=== PATIENT | male | born 2000 | race Caucasian/White ===

== ENCOUNTER 2024-06-20 13:47 | Outpatient (REF) | payer OTHER, SELFPAY ==
[2024-06-20 14:28] LABS: Internal Control Within Normal Limits; SARS-CoV-2 Ag POSITIVE (NEGATIVE)
== END 2024-06-20 13:48 | disposition home or self-care (01) ==
LOC: LAB 13:47
PROVIDERS: PCP Family Medicine; Visit Provider Family Medicine
DX: J20.9 Acute bronchitis, unspecified (principal)
CPT/HCPCS: 87811